=== PATIENT | male | born 1950 ===

== ENCOUNTER 2022-08-28 06:24 | Day surgery (SDC) | payer OTHER ==
[~2022-08-28] VITALS: Ht 167.6 cm; Wt 68.0 kg
[~2022-08-28 06:24] MED LIST: LOSARTAN POTASS50 MG PO; PROAIR RESPICL90 MCG IH; SYMBICORT 16010.2 GM IH
== END 2022-08-28 14:00 | disposition home or self-care (01) ==
LOC: CIR.AMB 06:24
PROVIDERS: ATTEND Orthopaedic Surgery
DX: M75.122 Complete rotator cuff tear or rupture of left shoulder, not specified as traumatic (principal); M24.112 Other articular cartilage disorders, left shoulder; Z20.822 Contact with and (suspected) exposure to COVID-19; I10 Essential (primary) hypertension; Z88.2 Allergy status to sulfonamides